=== PATIENT | female | born 1960 | race Two or more races ===

== ENCOUNTER 2018-09-11 13:04 | Outpatient (CLI) | payer OTHER | END 2018-09-11 15:33 | disposition home or self-care (01) | LOC: RAD 13:04 | DX: M54.5 Low back pain (principal) ==

== ENCOUNTER 2018-10-31 12:26 | Emergency (ER) | payer OTHER ==
[~2018-10-31] VITALS: Ht 165.1 cm; Wt 68.0 kg
[2018-10-31] MEDS ORDERED: NEURONTIN800 MG (12:45)
[2018-10-31] MEDS ORDERED: NAPR500T14 (12:46)
== END 2018-10-31 14:48 | disposition home or self-care (01) ==
LOC: ER 12:26
DX: B96.0 Mycoplasma pneumoniae [M. pneumoniae] as the cause of diseases classified elsewhere (principal)

== ENCOUNTER 2019-04-03 11:03 | Emergency (ER) | payer OTHER ==
[~2019-04-03] VITALS: Ht 165.1 cm; Wt 69.4 kg
[~2019-04-03 11:03] MED LIST: NAPR500T14; NEURONTIN800 MG
== END 2019-04-03 13:52 | disposition home or self-care (01) ==
LOC: ER 11:03
DX: T78.49XA Other allergy, initial encounter (principal); R21 Rash and other nonspecific skin eruption

== ENCOUNTER 2019-05-30 10:37 | Emergency (ER) | payer OTHER ==
[~2019-05-30] VITALS: Ht 165.1 cm; Wt 70.3 kg
[2019-05-30] MEDS ORDERED: MUCINEX1200 MG PO (14:50)
== END 2019-05-30 15:35 | disposition home or self-care (01) ==
LOC: ER 10:37
DX: B34.9 Viral infection, unspecified (principal)

== ENCOUNTER → 2022-03-02 | Outpatient (CLI) | payer OTHER ==
[~2022-03-02] MED LIST changes: +MUCINEX1200 MG PO
== END | disposition home or self-care (01) ==
LOC: RAD 16:17
PROVIDERS: ATTEND General Practice
DX: J43.9 Emphysema, unspecified (principal)

== ENCOUNTER → 2022-03-10 | Outpatient (CLI) | payer OTHER | END | disposition home or self-care (01) | LOC: MAMO-SONO 09:02 | PROVIDERS: ATTEND General Practice | DX: D48.61 Neoplasm of uncertain behavior of right breast (principal); D48.62 Neoplasm of uncertain behavior of left breast ==

== ENCOUNTER 2022-07-15 10:59 | Emergency (ER) | payer OTHER ==
[~2022-07-15] VITALS: Ht 165.1 cm; Wt 67.6 kg
[2022-07-15] MEDS ORDERED: KETO10TA2 PO (15:32)
[2022-07-15] MEDS ORDERED: ORPHENADRINE C100 MG PO (15:32)
[2022-07-15] MEDS ORDERED: AMOX1TAB5 PO (15:33)
== END 2022-07-15 15:42 | disposition home or self-care (01) ==
LOC: ER 10:59
DX: S50.312A Abrasion of left elbow, initial encounter (principal); S50.01XA Contusion of right elbow, initial encounter; S39.92XA Unspecified injury of lower back, initial encounter; W01.0XXA Fall on same level from slipping, tripping and stumbling without subsequent striking against object, initial encounter; Y93.F1 Activity, caregiving, bathing; Y92.012 Bathroom of single-family (private) house as the place of occurrence of the external cause; Z88.6 Allergy status to analgesic agent; M51.36 Other intervertebral disc degeneration, lumbar region

== ENCOUNTER 2022-07-18 13:33 | Emergency (ER) | payer OTHER ==
[~2022-07-18] VITALS: Ht 165.1 cm; Wt 67.6 kg
[~2022-07-18 13:33] MED LIST changes: +AMOX1TAB5 PO; +KETO10TA2 PO; +ORPHENADRINE C100 MG PO
== END 2022-07-18 17:57 | disposition home or self-care (01) ==
LOC: ER 13:33
DX: M17.9 Osteoarthritis of knee, unspecified (principal); Z88.5 Allergy status to narcotic agent

== ENCOUNTER 2022-09-01 11:19 | Emergency (ER) | payer OTHER ==
[~2022-09-01] VITALS: Ht 165.1 cm; Wt 66.2 kg
[2022-09-01] MEDS ORDERED: GABAPENTIN800 M1 PO (12:21)
== END 2022-09-01 16:05 | disposition home or self-care (01) ==
LOC: ER 11:19
DX: R10.84 Generalized abdominal pain (principal); Z88.8 Allergy status to other drugs, medicaments and biological substances

== ENCOUNTER → 2024-09-05 | Emergency (ER) | payer OTHER ==
[~2024-09-05] VITALS: Ht 165.1 cm; Wt 63.5 kg
[~2024-09-05] MED LIST changes: +GABAPENTIN800 M1 PO
== END | disposition left against medical advice (07) ==
LOC: ER 11:56
DX: Z53.21 Procedure and treatment not carried out due to patient leaving prior to being seen by health care provider (principal)